=== PATIENT | female | born 1940 | race Caucasian/White ===

== ENCOUNTER → 2018-12-14 | Outpatient (CLI) | payer BC ==
[2015-01-19 15:04] VITALS: BP 123/69
[~2018-12-14] MED LIST: ACET325T9 PO; ASPI-630 PO; ASPI325T8 PO; ATEN25TA PO; BACL10TA PO; BIOT1TAB2 PO; BLAC80CA PO; CALC1TAB PO; CELE200C PO; CINN500C2 PO; DULO60CA6 PO; EVE1000C3 PO; FLAX1000 PO; FOLI1TAB16 PO; GABA600T PO; GLUC-12 PO; LEVO25TA55 PO; MAGN400C PO; NAPR-514 PO; OXYB10TA PO; PANT40TA77 PO; PRAV10TA2 PO; RANI150T2 PO; SELE200T10 PO; TRIA1TAB5 PO; WARF-78 PO
--- NOTE | 2018-12-15 17:41 | SLEEP ---
DATE OF STUDY: 12/14/2018 HOME POLYSOMNOGRAM REPORT OBJECTIVE: The patient is a 78-year-old female with excessive somnolence. Height 61 inches, weight 174 pounds, body mass index 32.9 pounds per inches squared. [place] sleep score of 15. The apnea-hypopnea index is 15.8 events per hour of sleep. There are 1 central apnea, 1 obstructive apnea, 19 mixed apneas, 101 hypopneas. The minimum oxygen saturation is 70%. Mean heart rate of 68.8 beats per minute. IMPRESSION: Abnormal home polysomnogram showing obstructive sleep apnea and hypopnea. RECOMMENDATIONS: The patient will follow up in my office to go over these results. Thank you for letting us help with the patient's care. WINSTON VARGAS MD DR: Conrad JOB#: [id number] / [id number]
== END | disposition home or self-care (01) ==
LOC: RT 09:12
PROVIDERS: ATTEND Psychiatry & Neurology Neurology with Special Qualifications in Child Neurology
DX: G47.33 Obstructive sleep apnea (adult) (pediatric) (principal)
CPT/HCPCS: G0399

== ENCOUNTER → 2019-01-27 | Outpatient (CLI) | payer BC ==
[2015-01-19 15:04] VITALS: BP 123/69
[~2019-01-27] MED LIST changes: -OXYB10TA PO; +OXYB10TA2 PO
--- NOTE | 2019-02-02 21:03 | SLEEP ---
DATE OF STUDY: 01/27/2019 OBJECTIVE: The patient is a 78-year-old female with a previous abnormal home sleep study, requiring CPAP titration. Height 5 feet 1 inch, weight 174 pounds, body mass index 33. INTERPRETATION: Sleep architecture is characterized by a sleep efficiency of 83% across the 8.5 hours of recording time. There is a reduced amount of slow-wave sleep. There are a total of 121 respiratory events on the CPAP titration study. The patient is treated with a variety of CPAP settings and the best on 20 cm without BiPAP for a total of 118 minutes. The apnea-hypopnea index on this setting is 5.1 events per hour of sleep. Switching to BiPAP actually paradoxically worsened the apnea. Periodic limb movements of sleep occur at the rate of 80 per hour, 7 per hour associated with arousal. No significant cardiac arrhythmias are observed. IMPRESSION: Abnormal polysomnogram showing successful treatment of sleep apnea, using 20 cm of CPAP, Respironics DreamWear full face mask, small size. RECOMMENDATIONS: 1. We will attempt to arrange this setting for the patient. 2. She should avoid sedatives and alcohol and pursue weight loss. 3. She will follow up in my office as scheduled. Thank you for letting us help with the patient's care. WINSTON VARGAS MD DR: GIOVANI/vic JOB#: [id number] / [id number]
== END | disposition home or self-care (01) ==
LOC: RT 19:17
PROVIDERS: ATTEND Psychiatry & Neurology Neurology with Special Qualifications in Child Neurology
DX: G47.33 Obstructive sleep apnea (adult) (pediatric) (principal)
CPT/HCPCS: 95811

== ENCOUNTER → 2019-04-25 | Outpatient (CLI) | payer BC ==
[2015-01-19 15:04] VITALS: BP 123/69
--- NOTE | 2019-04-25 13:17 | KCIC ---
Barium esophagram History: Chronic dysphagia, gastroesophageal reflux disease Comparison: None. Fluoroscopy time: 2 minutes 16 seconds, 27 images Findings: Barium esophagram was performed. Esophagus is overall dilated. There was normal relaxation of the lower esophageal sphincter although there is decreased effective propulsive motility. With patient in prone position, there was standing column of contrast throughout the esophagus without significant emptying with dry swallows. There was subsequent emptying when patient was placed in upright position. There is moderate size hiatal hernia. There is narrowing of the distal esophagus with approximate 65% luminal diameter reduction relative to the more proximal dilated esophagus. There was incomplete relaxation of the posterior cricopharyngeal muscle. Impression: 1. There is moderate size hiatal hernia. There is narrowing of the distal esophagus. There is decreased effective propulsive esophageal motility, standing column of contrast throughout the esophagus with patient in prone position. Electronically signed by: Adryan Monroe MD (04/25/2019 1:14 PM) [id number]
== END | disposition home or self-care (01) ==
LOC: KCIC 11:12
PROVIDERS: ATTEND Physician Assistant
DX: K44.9 Diaphragmatic hernia without obstruction or gangrene (principal); I10 Essential (primary) hypertension; M79.7 Fibromyalgia; E03.9 Hypothyroidism, unspecified; M19.90 Unspecified osteoarthritis, unspecified site; Z79.01 Long term (current) use of anticoagulants
CPT/HCPCS: 74220

== ENCOUNTER 2020-03-19 12:47 | Emergency (ER) | payer BC, MEDICARE ==
[~2020-03-19] VITALS: Ht 154.9 cm; Wt 75.0 kg
[~2020-03-19 12:47] MED LIST changes: -OXYB10TA2 PO; +OXYB10TA26 PO; -WARF-78 PO; +WARF5TAB2 PO
--- NOTE | 2020-03-19 15:27 | PHYS DOC ---
Past Medical History Past Medical History: Arthritis, Depression, Fibromyalgia, GERD, High Cho lesterol, Hypertension, Hypothyroid, Other Additional Past Medical Histor: NEUROPATHY, FIBROMYALGIA, INCOMPLETE TRANSVERSE MYELITIS Past Surgical History: Knee Replacement, Other Additional Past Surgical Histo: HUSSAIN CARPAL TUNNEL, HUSSAIN BUNIONECTOMY, L GREAT TOE Smoking Status: Never Smoker Alcohol Use: Rarely General Adult EDM: Chief Complaint: GROIN PAIN HPI: HPI: Patient is a 79 year old female who presents with groin pain. Pt thinks its her transverse myelitis from R leg spreading. Reports pain around entire right groin area but pointed to a single spot that was 8/10 pain. Pain started night and has been continous since. Pt wants refill for Tramadol. Pt also reports back pain from her osteoarthritis. Heating pad and lying down helped with pain. Review of Systems: Review of Systems: Constitutional: Denies fever or chills Eyes: Denies redness or eye pain HENT: Denies nasal congestion or sore throat Respiratory: Denies cough or shortness of breath Cardiovascular: Denies chest pain or palpitations GI: Denies abdominal pain, nausea, or vomiting : Denies dysuria or hematuria Musculoskeletal: Pt reports low back pain and right groin pain. Integument: Denies rash or skin lesions Neurologic: Denies headache, focal weakness or sensory changes Complete systems were reviewed and found to be within normal limits, except as documented in this note. Heart Score: HEART Score for Chest Pain: HEART Score for Chest Pain Response (Comments) Value History Slighlty/Non-Suspicious 0 ECG Normal 0 Age > 65 2 Risk Factors 1 or 2 Risk Factors 1 Total 3 Family History: Family History: Mother and sister have cervical cancer. 2 brothers have leukemia. Current Medications: Current Medications Medications (Trade) Dose Ordered Sig/Angus Start Time Stop Time Status Last Admin Dose Admin Ketorolac Tromethamine (Toradol 15mg Vial) 10 mg 1X ONCE 03/19/20 15:30 03/19/20 15:31 Sodium Chloride 1,000 ml @ 1,000 mls/hr 1X ONCE 03/19/20 15:30 03/19/20 16:29 Allergies: Allergies: Allergies Coded Allergies Type Severity Reaction Last Updated Verified aspartame Allergy Severe ANAPHYLAXIS 01/16/15 Yes meperidine Adverse Reaction Severe HALLUCINATIONS 01/16/15 Yes Physical Exam: PE: Constitutional: Well developed, well nourished, no acute distress, non-toxic appearance HENT: Normocephalic, atraumatic Eyes: Cconjunctiva normal, no discharge Neck: Normal range of motion, no tenderness, supple Lungs & Thorax: No respiratory distress, equal chest rise and fall Abdomen: Soft. No tenderness. Skin: Warm, dry, no erythema, no rash Back: Pain to palpation of lower back and bilateral flanks. Extremities: No tenderness, ROM intact, no edema Neurologic: Alert and oriented X 3, normal motor function, normal sensory function, no focal deficits noted Psychologic: Affect normal, judgment normal Current Patient Data: Vital Signs: Vital Signs Date Time Temp Pulse Resp B/P (MAP) Pulse Ox O2 Delivery O2 Flow Rate FiO2 03/19/20 13:20 98.3 75 18 149/76 (100) 96 Room Air 98.3 EKG: EKG: [] Radiology/Procedures: Radiology/Procedures: PROCEDURE: CT ABDOMEN PELVIS WO CONTRAST Exam: CT of abdomen and pelvis without contrast INDICATION: Right lower quadrant pain with back pain TECHNIQUE: Sequential axial images through the abdomen and pelvis obtained without IV contrast. Sagittal and coronal reformatted images were reconstructed from the axial data and reviewed. Comparisons: None FINDINGS: Heart size is normal. No pericardial effusion. Strandy opacities at dependent portion lungs likely representing atelectasis moderate-sized hiatal hernia. Evaluation of solid organs limited secondary to noncontrast technique. Diffuse hepatic steatosis. Spleen, pancreas, gallbladder and adrenals are unremarkable. No perinephric inflammation or hydronephrosis. No renal or ureteral calculi are identified. Bladder is decompressed not well evaluated. Uterus is nonenlarged. No abnormal adnexal mass. Large and small bowel are unremarkable. Appendix is normal. No free intra-abdominal air or fluid. No obstruction. Abdominal aorta has a normal course and caliber. No enlarged intra-abdominal lymph nodes are identified. No suspicious osseous lesions or acute fractures. IMPRESSION: 1. No acute process identified within the abdomen or pelvis. 2. Moderate-sized hiatal hernia. 3. Diffuse hepatic steatosis. Exposure: One or more of the following in the visualized dose reduction techniques were utilized for this examination: 1. Automated exposure control 2. Adjustment of the MA and/or KV according to patient size 3. Use of iterative of reconstructive technique Electronically signed by: Colt Torres MD (03/19/2020 4:30 PM) [facility] Course & Med Decision Making: Course & Med Decision Making [] Oliva Disclaimer: Oliva Disclaimer: This electronic medical record was generated, in whole or in part, using a voice recognition dictation system. Departure Departure Impression: Primary Impression: Right groin pain Additional Impression: Chronic back pain Qualified Codes: M54.9 - Dorsalgia, unspecified; G89.29 - Other chronic pain Disposition: 01 DC HOME SELF CARE/HOMELESS Condition: STABLE Referrals: RASHMI ISIDRO MD (PCP) Patient Instructions: Groin Strain, Sciatica, [id number], Transverse Myelitis RICH MORALES DO Mar 19, 2020 15:27
[2020-03-19] MEDS ORDERED: KETOROLAC 15 MG/ML VIAL. IVP ONE (15:30)
[2020-03-19] MEDS ORDERED: IV NORMAL SALINE 1000ML BAG 1,000 ML IV ONE (15:30)
[2020-03-19 15:34] LABS: BILIRUBIN,URINE NEGATIVE (NEG); CLARITY,URINE CLEAR; COLOR,URINE YELLOW; NITRITE,URINE NEGATIVE (NEG); PROTEIN,URINE NEGATIVE (NEG-TRACE); UROBILINOGEN,URINE 0.2 mg/dL (0.2 mg/dL)
[2020-03-19 15:45] LABS: BACTERIA,URINE 0 /HPF (0-FEW); RBC,URINE 0 /HPF (0-2); WBC,URINE 0 /HPF (0-4)
[2020-03-19 16:04] LABS: BASO # 0.1 x10^3/uL (0.0-0.2); BASO % 1 % (0-3); EOS # 0.3 x10^3/uL (0.0-0.7); EOS % 4 % (0-3); HEMATOCRIT 39.3 % (36.0-47.0); HEMOGLOBIN 13.7 g/dL (12.0-15.5); LYMPH # 1.8 x10^3/uL (1.0-4.8); LYMPH % 24 % (24-48); MEAN CORPUSCULAR HEMOGLOBIN 31 pg (25-35); MEAN CORPUSCULAR HGB CONC 35 g/dL (31-37); MEAN CORPUSCULAR VOLUME 88 fL (79-100); MONO # 0.7 x10^3/uL (0.0-1.1); MONO % 9 % (0-9); NEUT # 4.7 x10^3/uL (1.8-7.7); NEUT % 62 % (31-73); PLATELET COUNT 311 x10^3/uL (140-400); RED BLOOD COUNT 4.45 x10^6/uL (3.50-5.40); RED CELL DISTRIBUTION WIDTH 13.3 % (11.5-14.5); WHITE BLOOD COUNT 7.7 x10^3/uL (4.0-11.0)
[2020-03-19 16:12] LABS: PROTHROMBIN TIME PATIENT 12.9 SEC (11.7-14.0)
[2020-03-19 16:16] LABS: CALCIUM 9.3 mg/dL (8.5-10.1); GFR 53.6; POTASSIUM 4.1 mmol/L (3.5-5.1)
[2020-03-19 16:21] LABS: ALBUMIN 3.6 g/dL (3.4-5.0); ALBUMIN/GLOBULIN RATIO 0.9 (1.0-1.7); MAGNESIUM 2.2 mg/dL (1.8-2.4); TOTAL BILIRUBIN 0.4 mg/dL (0.2-1.0); TOTAL PROTEIN 7.4 g/dL (6.4-8.2)
--- NOTE | 2020-03-19 16:33 | RAD ---
Exam: CT of abdomen and pelvis without contrast INDICATION: Right lower quadrant pain with back pain TECHNIQUE: Sequential axial images through the abdomen and pelvis obtained without IV contrast. Sagittal and coronal reformatted images were reconstructed from the axial data and reviewed. Comparisons: None FINDINGS: Heart size is normal. No pericardial effusion. Strandy opacities at dependent portion lungs likely representing atelectasis moderate-sized hiatal hernia. Evaluation of solid organs limited secondary to noncontrast technique. Diffuse hepatic steatosis. Spleen, pancreas, gallbladder and adrenals are unremarkable. No perinephric inflammation or hydronephrosis. No renal or ureteral calculi are identified. Bladder is decompressed not well evaluated. Uterus is nonenlarged. No abnormal adnexal mass. Large and small bowel are unremarkable. Appendix is normal. No free intra-abdominal air or fluid. No obstruction. Abdominal aorta has a normal course and caliber. No enlarged intra-abdominal lymph nodes are identified. No suspicious osseous lesions or acute fractures. IMPRESSION: 1. No acute process identified within the abdomen or pelvis. 2. Moderate-sized hiatal hernia. 3. Diffuse hepatic steatosis. Exposure: One or more of the following in the visualized dose reduction techniques were utilized for this examination: 1. Automated exposure control 2. Adjustment of the MA and/or KV according to patient size 3. Use of iterative of reconstructive technique Electronically signed by: Colt Torres MD (03/19/2020 4:30 PM) [facility]
[2020-03-19 17:20] VITALS: BP 113/62
== END 2020-03-19 17:37 | disposition home or self-care (01) ==
LOC: ER 12:47
DX: R10.31 Right lower quadrant pain (principal); M54.5 Low back pain; G89.29 Other chronic pain; M19.90 Unspecified osteoarthritis, unspecified site; M79.7 Fibromyalgia; F32.9 Major depressive disorder, single episode, unspecified; K21.9 Gastro-esophageal reflux disease without esophagitis; E78.00 Pure hypercholesterolemia, unspecified; I10 Essential (primary) hypertension; E03.9 Hypothyroidism, unspecified; Z98.890 Other specified postprocedural states; Z90.89 Acquired absence of other organs; Z88.8 Allergy status to other drugs, medicaments and biological substances
CPT/HCPCS: 36415; 74176; 80053; 81001; 83735; 85025; 85610; 85730; 96361; 96374; 99285; J1885; J7030